=== PATIENT | female | born 1995 | race Caucasian/White ===

== ENCOUNTER 2021-02-02 13:36 | Outpatient (CLI) | payer BC ==
[~2021-02-02 13:36] MED LIST: Magnevist 469MG/ML 20 ML VIAL ONE
== END 2021-02-02 13:37 | disposition home or self-care (01) ==
LOC: BICMRI 13:36
PROVIDERS: ATTEND Student in an Organized Health Care Education/Training Program
DX: E23.0 Hypopituitarism (principal)
CPT/HCPCS: 70553; A9579